=== PATIENT | female | born 2000 | race Two or more races ===

== ENCOUNTER 2025-09-14 15:35 | Emergency (ER) | payer OTHER ==
[~2025-09-14] VITALS: Ht 157.5 cm; Wt 56.8 kg
[2025-09-14 15:43] VITALS: TEMP 98.8
[2025-09-14 16:30] LABS: APPEARANCE,URINE CLEAR (CLEAR); GLUCOSE, URINE (UA) NEGATIVE (NEGATIVE); LEUKOCYTE ESTERASE ,URINE NEGATIVE (NEGATIVE); NITRATE,URINE NEGATIVE (NEGATIVE); OCCULT BLOOD,URINE NEGATIVE (NEGATIVE); SPECIFIC GRAVITIY, URINE 1.020 (1.003-1.030)
[2025-09-14 16:54] LABS: PLATELET COUNT (AUTO) 305 K/uL (150-450); RED BLOOD CELL COUNT(AUTO) 4.71 MIL/uL (4.00-5.20); RED CELL DISTRIBUTION WIDTH 17.3 % (11.5-14.5); WHITE BLOOD COUNT (AUTO) 7.8 K/uL (4.5-11.0)
[2025-09-14 17:09] LABS: CALCIUM, TOTAL 9.0 mg/dL (8.8-10.5); CREATININE 0.55 mg/dL (0.60-1.30); GLOMERULAR FILTR. RATE CALC > 60 mL/min (>60); GLUCOSE,RANDOM 102 mg/dL (70-110); UREA NITROGEN, BLOOD 9 mg/dL (7-18)
[2025-09-14 17:15] VITALS: BP 134/76; PULSE 94; RESP 18; O2SAT 100
[2025-09-14 17:20] LABS: SODIUM SERUM 141 mmol/L (136-145)
[2025-09-14] MEDS ORDERED: PHEN-846 PO (17:32)
[2025-09-14 18:01] LABS: RBC MORPHOLOGY COMMENT ABNORMAL RBC MORPH
== END 2025-09-14 17:43 | disposition home or self-care (01) ==
LOC: EMS 15:35
DX: R35.0 Frequency of micturition (principal)
CPT/HCPCS: 80048; 81003; 84703; 85025; 99283